=== PATIENT | male | born 1985 | race Caucasian/White ===

== ENCOUNTER 2019-05-24 15:16 | Emergency (ER) | payer OTHER, BC ==
[2019-05-24 15:22] VITALS: BP 152/91; PULSE 88; TEMP 97.6; BMI 33.5
[2019-05-24] MEDS ORDERED: KETOROLAC TROMETHAMINE 30 MG/1 ML VIAL IM ONE (15:36)
--- NOTE | 2019-05-24 15:38 | PDOC ---
History of Present Illness - General Chief Complaint: Pain Stated Complaint: RT KNEE PAIN Time Seen by Provider: 05/24/19 15:27 History Source: Patient Exam Limitations: No Limitations - History of Present Illness Initial Comments: 05/24/19 15:36 HISTORY OF PRESENT ILLNESS: 34-year-old male past medical history of gallstones status post cholecystectomy 2018, kidney stones presents emergency department for evaluation of right knee pain while at work yesterday. Patient works as a doorman and a [employer] and while coming down the stairs jumped down 2 steps landing on the on his right leg. Patient felt a sharp pain to the inside of his right knee but did not fall to the ground. Patient has been ambulatory with a limp since the injury. No recent travel or sick contacts. PAST MEDICAL HISTORY: Denies past medical history SURGICAL HISTORY: Denies ALLERGIES: No known drug allergies REVIEW OF SYSTEMS General/Constitutional: Denies fever or chills. Denies weakness, weight change. HEENT: Denies change in vision. Denies ear pain or discharge. Denies sore throat. Cardiovascular: Denies chest pain or shortness of breath. Respiratory: Denies cough, wheezing, or hemoptysis. Gastrointestinal: Denies nausea, vomiting, diarrhea or constipation. Denies rectal bleeding. Genitourinary: Denies dysuria, frequency, or change in urination. Musculoskeletal: see HPI Skin and breasts: Denies rash or easy bruising. Neurologic: Denies headache, vertigo, loss of consciousness, or loss of sensation. Psychiatric: Denies depression or anxiety. Endocrine: Denies increased thirst. Denies abnormal weight change. Hematologic/Lymphatic: Denies anemia, easy bleeding, or history of blood clots. Allergic/Immunologic: Denies hives or skin allergy. Denies latex allergy. PHYSICAL EXAM General Appearance: Well-appearing, appropriately dressed. No apparent distress , no intoxication. Respiratory/Chest: Lungs CTAB. No shortness of breath, chest tenderness, respiratory distress, accessory muscle use. No crackles, rales, rhonchi, stridor , wheezing, dullness Cardiovascular: RRR. S1, S2. No JVD, murmur, bradycardia, tachycardia. Vascular Pulses: Dorsalis-Pedis (R): 2+, Dorsalis-Pedis (L): 2+ Musculoskeletal/Extremities: Normal inspection. FROM of all extremities, normal capillary refill. Pelvis Stable. No CVA tenderness. No tenderness to extremities, pedal edema, swelling, erythema or deformity. negative Bhavana test. Integumentary: Appropriate color, dry, warm. No cyanosis, erythema, jaundice or rash. Ecchymosis present to the superior medial aspect of the right knee 05/24/19 16:07 Past History - Past Medical History Allergies/Adverse Reactions: Allergies Allergy/AdvReac Type Severity Reaction Status Date / Time No Known Allergies Allergy Verified 05/24/19 15:22 Home Medications: Ambulatory Orders NK [No Known Home Medication] 05/24/19 COPD: No GI Disorders: Yes (ulcer) - Suicide/Smoking/Psychosocial Hx Smoking History: Current every day smoker Information on smoking cessation initiated: No *Physical Exam - Vital Signs Last Vital Signs Temp Pulse Resp BP Pulse Ox 97.6 F 88 18 152/91 97 05/24/19 15:18 05/24/19 15:18 05/24/19 15:18 05/24/19 15:18 05/24/19 15:18 ED Treatment Course - RADIOLOGY Radiology Studies Ordered: Category Date Time Status KNEE 2 POS-RIGHT [RAD] Stat Radiology 05/24/19 15:36 Ordered Medical Decision Making - Medical Decision Making 05/24/19 15:37 A/P: 34-year-old male with right knee pain for one day X-rays Toradol 30 mg IM Reassess 05/24/19 16:25 X-ray of the knee as read by me: No acute fractures or dislocations present. No soft tissue swelling noted. Immobilizer Crutches Discharge home to follow-up with orthopedics I discussed the physical exam findings, ancillary test results and final diagnoses with the patient. I answered all of the patient's questions. The patient was satisfied with the care received and felt comfortable with the discharge plan and treatment plan. The patient will call their primary care physician within 24 hours to arrange follow-up and will return to the Emergency Department with any new, persistent or worsening symptoms. Portions of this note have been documented using voice recognition software. As a result, errors may occur in the shipbuilding draftsperson process. Effort has been made to correct all grammatical and shipbuilding draftsperson error, but some may have been missed. *DC/Admit/Observation/Transfer Diagnosis at time of Disposition: Right medial knee pain - Discharge Dispostion Disposition: HOME Condition at time of disposition: Stable Decision to Admit order: No - Referrals Referrals: Paul Casanova MD [Staff Physician] - - Patient Instructions Additional Instructions: Take Tylenol or Motrin as needed for pain. Follow manufacturers instructions for appropriate dosage. Try not to walk or bear weight on your left knee as much as possible for the next 3 days. Apply ice for 20 minutes and removed for at least 20 minutes before reapplying the ice. Keep knee immobilizer on as much as possible. Whenever possible keep your foot elevated to decrease swelling. You've been given the number for an orthopedist. If symptoms do not resolve within the next 7 days call the orthopedist for further evaluation. Return to emergency department for discoloration of the foot, numbness or tingling to the foot, worsening pain, or any other concerns. Thank you very much for choosing us to provide your emergent healthcare needs. - Post Discharge Activity Forms/Work/School Notes: Back to Work
[2019-05-24] MEDS ORDERED: KETOROLAC TROMETHAMINE 30 MG/1 ML VIAL ONE (15:50)
== END 2019-05-24 16:38 | disposition home or self-care (01) ==
LOC: JERFT 15:16
PROC: 2W3QXYZ Immobilization of Right Lower Leg using Other Device (ICD-10-PCS; principal; 2019-05-24)
DX: M25.561 Pain in right knee (principal); X50.1XXA Overexertion from prolonged static or awkward postures, initial encounter; Y93.39 Activity, other involving climbing, rappelling and jumping off; Y92.89 Other specified places as the place of occurrence of the external cause; Y99.0 Civilian activity done for income or pay
CPT/HCPCS: 73560-TC-RT-FY; 99281-25